=== PATIENT | male | born 1970 | race Caucasian/White ===

== ENCOUNTER 2018-09-20 12:20 | Inpatient (IN) ==
--- NOTE | 2018-09-20 13:14 | Emergency Department Note ---
Disposition Clinical Impression: Suicidal ideation Disposition: Admitted As Inpatient Condition: Fair Time of Disposition: 13:14 General Adult HPI - General Chief complaint: ED Psychiatric Symptoms Stated complaint: si Time Seen by Provider: 09/20/18 12:31 Source: patient, EMS Mode of arrival: EMS Limitations: no limitations Nursing Notes Reviewed: Yes Vital Signs Reviewed: Yes - History of Present Illness HPI Narrative: Patient is a 47-year-old male past medical history of methamphetamine presents immersed her for evaluation of paranoia and suicidal ideation. Patient states his symptoms have been going on for the past week and he feels that people are out to get him to the point where stressed a mountain caused him to purchase a gun in which she was initially going to use to protect himself however he states he wants to kill himself. Family secured the gun and brought the patient involuntarily. Patient admits to using meth. Denies SI history. Denies HI. Pain Scale: 0 - Related Data Home Medications Medication Instructions Recorded Confirmed No Known Home Drugs 09/20/18 09/20/18 Allergies Allergy/AdvReac Type Severity Reaction Status Date / Time bupropion [From Wellbutrin] Allergy Hives Verified 04/13/17 08:30 methylprednisolone Allergy Redness of Verified 04/13/17 08:30 [From Medrol] Skin Penicillins Allergy Unresponsiv Verified 04/13/17 08:30 e All systems ED: reviewed and negative except as stated. Review of Systems: As Per HPI Constitutional: Denies: fever, chills Cardiovascular: Denies: chest pain, palpitations Respiratory: Denies: cough, dyspnea Gastrointestinal: Denies: abdominal pain Neurological: Denies: headache, weakness, numbness, paresthesias Psychiatric: Reports: anxiety, suicidal thoughts. Denies: homicidal thoughts, auditory hallucinations, visual hallucinations Past Medical History - Past Medical History Attestation: Yes The following information was validated with the patient. Medical history: Reports: GERD, other Surgical history: Reports: orthopedic, other (Back surgery), other (Eye surgery) Psychiatric history: Reports: bipolar - Social History Smoking Status: Current every day smoker Smokeless Tobacco Status: No Alcohol use: Reports: occasionally Drug use: Reports: marijuana, methamphetamine Physical Exam CONSTITUTIONAL: Alert and oriented X3, in no apparent distress HEAD: Normocephalic; atraumatic. EYES: PERRL, no scleral icterus. NOSE: The nose is normal in appearance without rhinorrhea RESP: Normal chest excursion with respiration; breath sounds clear and equal bilaterally; no wheezes, rhonchi, or rales CARD: Regular rhythm, without murmurs, rub or gallop ABD: Non-distended; non-tender, soft,without rigidity, rebound or guarding PSYCH: Paranoia, SI, hallucinations. Denies HI. SKIN: Normal for age and race; warm and dry; no apparent lesions - General Limitations: no limitations General appearance: alert, in no apparent distress Course Course Narrative: Patient underwent medical clearance by [facility]. He is positive for amphetamines. 1A psychiatric team consult it. Sitter at bedside. Vital Signs Temperature 97.6 F 09/20/18 12:34 Pulse Rate 70 09/20/18 12:34 Respiratory Rate 16 09/20/18 12:34 Blood Pressure 120/82 09/20/18 12:34 O2 Sat by Pulse Oximetry 100 09/20/18 12:34 Temperature 97.6 F 09/20/18 12:34 Pulse Rate 70 09/20/18 12:34 Respiratory Rate 16 09/20/18 12:34 Blood Pressure 120/82 09/20/18 12:34 O2 Sat by Pulse Oximetry 100 09/20/18 12:34 Oxygen Delivery Oxygen Delivery Room Air Medical Decision Making - Medical Records Medical records reviewed: Yes I reviewed the patient's medical records. - Lab Data Lab results reviewed: Yes I reviewed the patient's lab results.
[2018-09-20] MEDS ORDERED: MOM Conc 10 ML UD.LIQ PO PRN (14:06)
[2018-09-20] MEDS ORDERED: Haloperidol Lactate 5 MG/ML VIAL IM PRN (14:06)
[2018-09-20] MEDS ORDERED: *HR* LORazepam 2 MG/ML VIAL IM PRN (14:06)
[2018-09-20] MEDS ORDERED: *HR* LORazepam 1 MG TABLET PO PRN (14:06)
[2018-09-20] MEDS ORDERED: Acetaminophen 325 MG TABLET PO PRN (14:06)
[2018-09-20] MEDS ORDERED: Mag Hydrox/Al Hydrox/Simeth 30 ML UDC PO PRN (14:06)
--- NOTE | 2018-09-20 14:34 | Emergency Department Note ---
Disposition Clinical Impression: Suicidal ideation Disposition: Admitted As Inpatient Condition: Fair General Adult HPI - General Chief complaint: ED Psychiatric Symptoms Stated complaint: si Time Seen by Provider: 09/20/18 12:31 Source: patient, EMS Mode of arrival: EMS Limitations: no limitations - History of Present Illness Pain Scale: 0 - Related Data Home Medications Medication Instructions Recorded Confirmed No Known Home Drugs 09/20/18 09/20/18 Allergies Allergy/AdvReac Type Severity Reaction Status Date / Time bupropion [From Wellbutrin] Allergy Hives Verified 04/13/17 08:30 methylprednisolone Allergy Redness of Verified 04/13/17 08:30 [From Medrol] Skin Penicillins Allergy Unresponsiv Verified 04/13/17 08:30 e Constitutional: Denies: fever, chills Cardiovascular: Denies: chest pain, palpitations Respiratory: Denies: cough, dyspnea Gastrointestinal: Denies: abdominal pain Neurological: Denies: headache, weakness, numbness, paresthesias Psychiatric: Reports: anxiety, suicidal thoughts. Denies: homicidal thoughts, auditory hallucinations, visual hallucinations Past Medical History - Past Medical History Medical history: Reports: GERD, other Surgical history: Reports: orthopedic, other (Back surgery), other (Eye surgery) Psychiatric history: Reports: bipolar - Social History Smoking Status: Current every day smoker Smokeless Tobacco Status: No Alcohol use: Reports: occasionally Drug use: Reports: marijuana, methamphetamine Physical Exam - General Limitations: no limitations General appearance: alert, in no apparent distress Course Vital Signs Temperature 97.6 F 09/20/18 12:34 Pulse Rate 70 09/20/18 12:34 Respiratory Rate 16 09/20/18 12:34 Blood Pressure 120/82 09/20/18 12:34 O2 Sat by Pulse Oximetry 100 09/20/18 12:34 Temperature 97.6 F 09/20/18 12:34 Pulse Rate 70 09/20/18 12:34 Respiratory Rate 16 09/20/18 12:34 Blood Pressure 120/82 09/20/18 12:34 O2 Sat by Pulse Oximetry 100 09/20/18 12:34 Oxygen Delivery Oxygen Delivery Room Air Attestation Statement - Attestation Attestation: I examined this patient and my medical decision-making was reviewed with the Resident Physician. I agree with the documented findings, disposition and treatment plan as described except to the extent set forth below. 47-year-old male in presented to the emergency room for methamphetamine abuse as well as suicidal ideation. Patient had recently body done. Wanting to kill himself at times. Patient is also been using methamphetamine. Patient has not been sleeping well. Feels depressed and withdrawn. Patient will be admitted here for psychiatric treatment. He is medically cleared at this time.
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
[2018-09-20] MEDS: hydrOXYzine pamoate 25 MG CAPSULE PO PRN (20:42)
[2018-09-20] MEDS: traZODone 50 MG TABLET PO PRN (20:42)
[2018-09-21] MEDS: ARIPiprazole 5 MG TABLET PO SCH (09:21)
[2018-09-21] MEDS: Nicotine 14 MG PATCH.TD24 TD SCH (10:03)
[2018-09-21] MEDS ORDERED: Ibuprofen 400 MG TABLET PO PRN (21:34)
--- NOTE | 2018-09-22 09:35 | Psychiatry Progress Note ---
Date of Encounter: 09/22/18 Time of Encounter: 09:33 Subjective Interval history: Patient says he is very sedated from the Abilify. He said he slept most of yesterday. He reports he is still feeling depressed with sad mood, decreased interest, feelings of guilt and worthlessness, and some hopelessness. He denies active suicidal ideations, intent, or plan. He denies auditory or visual hallucinations. Review of Systems Musculoskeletal: Reports: back pain, joint swelling, joint pain Psychiatric: Reports: depression, anxiety, abnormal sleep pattern, anhedonia, difficulty concentrating. Denies: change in appetite, homicidal ideation, visual hallucinations Results - Vital Signs Vital Signs: Temp Pulse Resp BP Pulse Ox 99.3 F 109 14 98/61 98 09/21/18 21:00 09/21/18 21:00 09/21/18 21:00 09/21/18 21:00 09/21/18 21:00 Assessment and Plan (1) Acute psychosis Current visit: No Status: Acute Plan: Continue hospitalization, Close observation, Suicide Precautions per unit protocol, Encourage participation in unit milieu, Group Therapy, Monitor sleep, Monitor appetite Additional Plan: Increase abilify to 10mg and change to hs for furhter mood stabalization, groups and therapist to work on discharge plan Risks, benefits, side effects, alternatives discussed w/pt: Yes Patient agreeable to treatment: Yes Consult Discharge Plan - Plan Referrals: NONE,PCP [Primary Care Provider] - Psychiatry Exam - Constitutional Vitals: Temp Pulse Resp BP Pulse Ox 99.3 F 109 14 98/61 98 09/21/18 21:00 09/21/18 21:09/21/18 21:00 09/21/18 21:00 09/21/18 21:00 General appearance: age & developmentally appropriate, disheveled, thin - Musculoskeletal Gait: slow Station: stooped, stiff Strength & Tone: mild weakness - Psychiatric Patient Orientation: Yes Person, Yes Time, Yes Place Level of alertness: Alert Behavior: withdrawn Psychomotor activity: Slowed Eye Contact: No Eye Contact Mood Description: Depressed Patient description of mood: "I can't tell yet, I just woke up" Affect description: blunted Speech Volume: Soft/Quiet Speech pattern: slowed Language & Vocabulary: consistent with education Thought Process: Linear, Goal Oriented Thought Content: No Suicidal ideation, No Homicidal ideation, No Overt delusions Perceptual Disturbances: No Auditory hallucinations, No Visual hallucinations Attention Span Ability: Capable of Focused Attention, Capable of Sustained Attention Memory Description: Grossly Intact Patient Reliability: Reliable Historian Fund of knowledge: Yes abstraction ability, Yes aware of current events Intelligence Estimate: Average Judgment: Fair Insight: Partial
[2018-09-22] MEDS: Nicotine 14 MG PATCH.TD24 TD SCH (10:00)
[2018-09-22] MEDS: ARIPiprazole 5 MG TABLET PO SCH ×2 (11:39→20:54)
[2018-09-22] MEDS: traZODone 50 MG TABLET PO PRN (20:52)
[2018-09-22] MEDS: hydrOXYzine pamoate 25 MG CAPSULE PO PRN (20:52)
--- NOTE | 2018-09-23 10:12 | Psychiatry Progress Note ---
Date of Encounter: 09/23/18 Time of Encounter: 10:10 Subjective Interval history: Doing better. Reports mood is stable. Tolerating medications and feels he is less sedated with switch to Abilify at at bedtime. She denies suicidal ideations or homicidal ideations. Last night had some concerns still that his kids were not safe and he needed to stay in the hospital but now feels everyone is safe. He slept 7 hours of Vistaril and trazodone. Review of Systems Psychiatric: Reports: depression. Denies: change in appetite, homicidal ideation, visual hallucinations Results - Vital Signs Vital Signs: Temp Pulse Resp BP Pulse Ox 98 F 85 16 105/73 98 09/23/18 09:00 09/23/18 09:00 09/23/18 09:00 09/23/18 09:00 09/23/18 09:00 Assessment and Plan (1) Acute psychosis Current visit: No Status: Acute Plan: Continue hospitalization, Close observation, Suicide Precautions per unit protocol, Encourage participation in unit milieu, Group Therapy, Monitor sleep, Monitor appetite Additional Plan: Current medications, plan for discharge tomorrow, encourage groups. Risks, benefits, side effects, alternatives discussed w/pt: Yes Patient agreeable to treatment: Yes Consult Discharge Plan - Plan Referrals: NONE,PCP [Primary Care Provider] - Psychiatry Exam - Constitutional Vitals: Temp Pulse Resp BP Pulse Ox 98 F 85 16 105/73 98 09/23/18 09:00 09/23/18 09:00 09/23/18 09:00 09/23/18 09:00 09/23/18 09:00 General appearance: age & developmentally appropriate, well-groomed, well- nourished - Musculoskeletal Gait: normal Station: relaxed Strength & Tone: normal for patient - Psychiatric Patient Orientation: Yes Person, Yes Time, Yes Place Level of alertness: Alert Behavior: calm, cooperative Psychomotor activity: Normal Eye Contact: Maintains Eye Contact Mood Description: Depressed Patient description of mood: "better" Affect description: congruent with mood, dysphoric Speech Volume: Normal Speech pattern: normal rate, normal rhythm, normal tone, fluent, spontaneous Language & Vocabulary: consistent with education Thought Process: Linear, Goal Oriented Thought Content: No Suicidal ideation, No Homicidal ideation, No Overt delusions Perceptual Disturbances: No Auditory hallucinations, No Visual hallucinations Attention Span Ability: Capable of Focused Attention Memory Description: Grossly Intact Patient Reliability: Reliable Historian Fund of knowledge: Yes abstraction ability, Yes aware of current events Intelligence Estimate: Average Judgment: Fair Insight: Partial
[2018-09-23] MEDS: Nicotine 14 MG PATCH.TD24 TD SCH (10:25)
[2018-09-23] MEDS: traZODone 50 MG TABLET PO PRN (21:15)
[2018-09-23] MEDS: hydrOXYzine pamoate 25 MG CAPSULE PO PRN (21:15)
[2018-09-23] MEDS: ARIPiprazole 5 MG TABLET PO SCH (21:15)
--- NOTE | 2018-09-24 08:12 | Discharge Summary ---
Date of Encounter: 09/24/18 Time of Encounter: 08:10 Diagnosis - Discharge Diagnosis (1) Acute psychosis Status: Acute Medications - Discharge Medications Prescriptions: ARIPiprazole [Abilify] 10 mg PO HS #30 tablet hydrOXYzine pamoate [HydrOXYzine Pamoate] 25 mg PO TID PRN #30 capsule PRN Reason: Anxiety traZODone [TraZODone] 50 mg PO HS PRN #30 tablet PRN Reason: Insomnia ARIPiprazole [Abilify] 10 mg PO HS #30 tablet 09/24/18 [Rx] hydrOXYzine pamoate [HydrOXYzine Pamoate] 25 mg PO TID PRN #30 capsule 09/24/18 [Rx] traZODone [TraZODone] 50 mg PO HS PRN #30 tablet 09/24/18 [Rx] Allergy/AdvReac Type Severity Reaction Status Date / Time bupropion [From Wellbutrin] Allergy Hives Verified 04/13/17 08:30 methylprednisolone Allergy Redness of Verified 04/13/17 08:30 [From Medrol] Skin Penicillins Allergy Unresponsiv Verified 04/13/17 08:30 e Provider Date of admission: 09/20/18 14:00 Primary care physician: PCP NONE Discharging clinician: Nell Edmondson Psychiatry Exam - Constitutional Vitals: Temp Pulse Resp BP Pulse Ox 98.6 F 84 117 110/74 98 09/23/18 20:43 09/23/18 20:43 09/23/18 20:43 09/23/18 20:43 09/23/18 20:43 General appearance: age & developmentally appropriate, well-groomed, well- nourished - Musculoskeletal Gait: normal Station: relaxed Strength & Tone: normal for patient - Psychiatric Patient Orientation: Yes Person, Yes Time, Yes Place Level of alertness: Alert Behavior: calm, cooperative Psychomotor activity: Normal Eye Contact: Maintains Eye Contact Mood Description: Euthymic/stable Affect description: congruent with mood, full range Speech Volume: Normal Speech pattern: normal rate, normal rhythm, normal tone, fluent, spontaneous Language & Vocabulary: consistent with education Thought Process: Linear, Goal Oriented Thought Content: No Suicidal ideation, No Homicidal ideation, No Overt delusions Perceptual Disturbances: No Auditory hallucinations, No Visual hallucinations Attention Span Ability: Capable of Focused Attention Memory Description: Grossly Intact Patient Reliability: Reliable Historian Fund of knowledge: Yes abstraction ability, Yes aware of current events Intelligence Estimate: Average Judgment: Good Insight: Full Hospital Course Hospital course: Mr. Zamarripa is a 47 year old male who was admitted for depression and psychosis. He was started on Abilify to address this. Patient was educated of diagnosis and the risk-benefit side effects of this alternative treatment options and was monitored for responsiveness and side effects. Mood anxiety sleep and appetite interest improved as did future orientation. Self-harm thoughts subsided, thinking cleared, psychosis resolved, and mood stabilized. Patient was able to attend both individual and group therapy sessions as well as meet with the psychiatrist daily and urged to discuss any medication or treatment issues or other concerns. The patient was educated primarily by verbal means about their diagnosis and manifestations in their life. The option for treatment including group and individual therapy programming was offered to the patient in addition to the use of medications with all their potential risks, benefits, and side effects as well as the risks of not taking medication and non-adhereance were discussed with the patient at length. The patient was given the opportunity to ask questions and was noted to participate in the treatment in the planning process. The patient felt ready and eager to be discharged from the inpatient psychiatric unit to continue on with treatment as an outpatient. The patient agreed that is they were safe for this disposition. The patient was considered to be able to participate in informed consent and decision making with respect to medical, legal, and financial issues of the time of discharge. At the time of discharge the patient adamantly denied any concerns for lethality including suicidal or homicidal thoughts ideations or plans and was future oriented toward ongoing mental health care, medical follow-up and sobriety. Time spent discussing smoking cessation with patient: 3 to 10 minutes Does patient wish to continue nicotine replacement upon disc: No - Time Spent with Patient Total time spent providing and/or coordinating discharge services:25 minutes Less than 30 minutes Specific discharge activities: Interval history reviewed. Available labs re viewed . Psychotherapy provided. Patient had an opportunity to ask questions and address concerns. Patient was in agreement with the treatment plan. The risks benefits and side effects of medications were discussed with the patient, including alternatives and treatment. The patient was educated on the abstaining from any alcohol or illicit substances, following up with all scheduled appointments, and taking all medications as prescribed. The patient was educated on 90 meetings in 90 days and to find a sponsor. Assessment and Plan - Patient/Caregiver Discharge Instructions Activity: resume usual activities as tolerated Diet: regular diet Additional Instructions: Continue current medications. Follow up with outpatient mental health. Encourage continued therapy in a group or individual setting. The patient was discharged to home. - Follow up Plan Follow up with: NONE,PCP [Primary Care Provider] - Functional capacity at discharge: independent ambulation Overall status at discharge: Stable Disposition: Home, Self-Care Quality - Multiple Antipsychotics Patient discharged on 2 or more antipsychotic medications: No Procedures - Procedures Procedures: Medication Management, Crisis Stabilization, Supportive Therapy, Group Therapy, Psychoeducational Therapy
[2018-09-24] MEDS: Nicotine 14 MG PATCH.TD24 TD SCH (09:15)
[2018-09-24 09:29] VITALS: BP 96/65
== END 2018-09-24 16:45 | disposition home or self-care (01) | DRG 751 ==
LOC: EMEROOARM 12:20 → 1ANU 14:00
PROVIDERS: ADMIT Psychiatry & Neurology Psychiatry; ATTEND Psychiatry & Neurology Psychiatry